=== PATIENT | male | born 2005 | race Two or more races ===

== ENCOUNTER 2023-10-04 20:04 | Emergency (ER) | payer OTHER ==
[~2023-10-04] VITALS: Ht 170.2 cm; Wt 68.2 kg
[2023-10-04 20:23] VITALS: BP 144/77; PULSE 96; RESP 18; TEMP 98.3
[2023-10-04] MEDS ORDERED: DiphenhydrAMINE HCL 50 MG/ML VIAL IM ONE (20:30)
[2023-10-04] MEDS ORDERED: PredniSONE 20 MG TABLET PO ONE (21:00)
[2023-10-04] MEDS ORDERED: DIPH50CA37 PO (21:59)
[2023-10-04] MEDS ORDERED: EPIN0.3P3 IM (21:59)
[2023-10-04] MEDS ORDERED: PRED-554 PO (21:59)
== END 2023-10-04 22:53 | disposition home or self-care (01) ==
LOC: EMS 20:05
DX: L50.0 Allergic urticaria (principal); Z90.49 Acquired absence of other specified parts of digestive tract; Z91.013 Allergy to seafood; Z91.010 Allergy to peanuts; Z91.018 Allergy to other foods
CPT/HCPCS: 99283; 96372; J1200; J7512